=== PATIENT | female | born 1955 | race Caucasian/White ===

== ENCOUNTER 2018-01-02 15:41 | Emergency (ER) | payer OTHER ==
[~2018-01-02] VITALS: Ht 167.6 cm; Wt 95.7 kg
[2018-01-02] MEDS ORDERED: NAPROSYN500 MG PO (16:48)
[2018-01-02 16:56] VITALS: BP 177/88
== END 2018-01-02 16:57 | disposition home or self-care (01) ==
LOC: M.ERS 15:41
DX: M25.572 Pain in left ankle and joints of left foot (principal)